=== PATIENT | male | born 1990 | race Asian ===

== ENCOUNTER 2021-07-15 17:10 | Emergency (ER) | payer MEDICAID ==
[~2021-07-15] VITALS: Ht 170.2 cm; Wt 100.0 kg
[2021-07-15] MEDS ORDERED: mag hydrox/Alum hydrox/simeth 30ml oral suspension PO ONE (17:45)
[2021-07-15] MEDS ORDERED: LIDOcaine Viscous 15ml cup MM ONE (17:45)
[2021-07-15 18:00] LABS: EOSINOPHILS # (AUTO) 0.1 X10'3 (0-0.9); MEAN PLATELET VOLUME 7.4 FL (7.4-10.4); MONOCYTES # (AUTO) 0.7 X10'3 (0-0.9); MONOCYTES % (AUTO) 7.4 % (2-12); RED CELL DISTRIBUTION WIDTH 12.7 % (11.5-14.5)
[2021-07-15 18:02] LABS: BASOPHILS % (AUTO) 0.3 % (0-1); HEMATOCRIT 44.5 % (42.0-52.0); HEMOGLOBIN 15.7 g/dl (14.0-17.9); LYMPHOCYTES # (AUTO) 1.2 X10'3 (1.1-4.8); MEAN CORPUSCULAR HEMOGLOBIN 30.5 PG (27.0-31.0); MEAN CORPUSCULAR HGB CONC 35.4 g/dL (33.0-36.5); MEAN CORPUSCULAR VOLUME 86.4 FL (78-98); NEUTROPHILS # (AUTO) 7.6 X10'3 (1.8-7.7); NEUTROPHILS % (AUTO) 79.3 % (42-75); PLATELET COUNT 274 X10'3 (140-440); RED BLOOD COUNT 5.15 X10'6 (4.70-6.10); WHITE BLOOD COUNT 9.6 X10'3 (4.5-11.0)
[2021-07-15 18:14] LABS: ALANINE AMINOTRANSFERASE 89 U/L (12-78); ALBUMIN 4.3 G/DL (3.4-5.0); ALBUMIN/GLOBULIN RATIO 1.1 (1.1-1.5); ALKALINE PHOSPHATASE 82 IU/L (46-116); ANION GAP 9 (8-16); ASPARTATE AMINO TRANSFERASE 48 U/L (10-37); BILIRUBIN,TOTAL 0.8 MG/DL (0.1-1.0); BLOOD UREA NITROGEN 16 MG/DL (7-18); BUN/CREATININE RATIO 14.4 (5.4-32.0); CALCIUM 9.8 MG/DL (8.5-10.1); CHLORIDE 102 MMOL/L (99-107); CREATININE 1.11 MG/DL (0.60-1.10); GLUCOSE 116 MG/DL (70-104); POTASSIUM 3.6 MMOL/L (3.5-5.1); SODIUM 140 MMOL/L (135-145); TOTAL CARBON DIOXIDE 28.8 MMOL/L (24-32); TOTAL PROTEIN 8.3 G/DL (6.4-8.2); eGFR 78 ML/MIN
[2021-07-15 18:16] LABS: LIPASE 1590 U/L (73-393)
[2021-07-15 18:38] LABS: CLARITY,URINE SLIGHTLY CLOUDY (Clear); COLOR,URINE YELLOW (Yellow); GLUCOSE, URINE NEGATIVE (Neg); KETONES,URINE NEGATIVE (Neg); LEUKOCYTE ESTERASE ,URINE NEGATIVE (Neg); NITRITES, URINE NEGATIVE (Neg); OCCULT BLOOD,URINE MODERATE (Neg); PH,URINE 5.5 (4.8-8.0); PROTEIN,URINE NEGATIVE (Neg); UROBILINOGEN,URINE 0.2 E.U/dL (0.2-1.0)
[2021-07-15] MEDS ORDERED: ondansetron/PF 4mg/2ml inj IV ONE (18:45)
[2021-07-15] MEDS ORDERED: normal saline 1000ml 1,000 ML IV SCH (18:45)
[2021-07-15] MEDS ORDERED: morphine 4 MG/ML inj SYRINge IV ONE (18:45)
[2021-07-15 18:47] LABS: UA COLLECTION TYPE CLN CATCH MIDSTREAM
[2021-07-15 18:50] LABS: BACTERIA,URINE FEW /HPF (Neg); MUCUS STRANDS FEW /LPF (Neg); SQUAMOUS EPITHELIAL CELL,UR FEW /LPF (FEW); WBC,URINE 0-4 /HPF (0-4)
[2021-07-15] MEDS ORDERED: ACET325T55 PO (19:22)
[2021-07-15] MEDS ORDERED: ONDA8TAB13 PO (19:22)
[2021-07-15] MEDS ORDERED: HYDR-3965 PO (19:23)
[2021-07-15 19:38] VITALS: BP 150/82
== END 2021-07-15 19:46 | disposition home or self-care (01) ==
LOC: ER 17:11
DX: K85.20 Alcohol induced acute pancreatitis without necrosis or infection (principal); R10.84 Generalized abdominal pain; Z72.89 Other problems related to lifestyle; Z79.899 Other long term (current) drug therapy
CPT/HCPCS: 36415; 76700; 80053; 81001; 83690; 85025; 96361; 96374; 96375; 99284; J2270; J2405; J7030

== ENCOUNTER 2021-07-16 13:03 | Emergency (ER) | payer MEDICAID ==
[~2021-07-16] VITALS: Ht 170.2 cm; Wt 105.8 kg
[~2021-07-16 13:03] MED LIST: ACET325T55 PO; HYDR-3965 PO; ONDA8TAB13 PO
[2021-07-16 13:18] VITALS: BP 171/110
[2021-07-16 15:06] LABS: BASOPHILS % (AUTO) 0.4 % (0-1); EOSINOPHILS # (AUTO) 0.1 X10'3 (0-0.9); EOSINOPHILS % (AUTO) 1.3 % (0-6); HEMATOCRIT 43.8 % (42.0-52.0); LYMPHOCYTES # (AUTO) 1.3 X10'3 (1.1-4.8); LYMPHOCYTES % (AUTO) 11.9 % (21-51); MEAN CORPUSCULAR HGB CONC 34.2 g/dL (33.0-36.5); MEAN CORPUSCULAR VOLUME 87.8 FL (78-98); MEAN PLATELET VOLUME 7.6 FL (7.4-10.4); MONOCYTES # (AUTO) 0.9 X10'3 (0-0.9); MONOCYTES % (AUTO) 8.4 % (2-12); NEUTROPHILS # (AUTO) 8.6 X10'3 (1.8-7.7); PLATELET COUNT 235 X10'3 (140-440); RED BLOOD COUNT 4.99 X10'6 (4.70-6.10); RED CELL DISTRIBUTION WIDTH 12.5 % (11.5-14.5); WHITE BLOOD COUNT 11.1 X10'3 (4.5-11.0)
[2021-07-16 15:20] LABS: ALANINE AMINOTRANSFERASE 79 U/L (12-78); ALBUMIN 3.9 G/DL (3.4-5.0); ALBUMIN/GLOBULIN RATIO 0.9 (1.1-1.5); ALKALINE PHOSPHATASE 76 IU/L (46-116); ANION GAP 9 (8-16); ASPARTATE AMINO TRANSFERASE 36 U/L (10-37); BILIRUBIN,TOTAL 1.2 MG/DL (0.1-1.0); BLOOD UREA NITROGEN 12 MG/DL (7-18); CHLORIDE 101 MMOL/L (99-107); GLUCOSE 106 MG/DL (70-104); LIPASE 499 U/L (73-393); POTASSIUM 3.7 MMOL/L (3.5-5.1); SODIUM 140 MMOL/L (135-145); TOTAL CARBON DIOXIDE 30.1 MMOL/L (24-32); TOTAL PROTEIN 8.4 G/DL (6.4-8.2); eGFR 88 ML/MIN
[2021-07-16 15:22] LABS: CALCIUM 9.7 MG/DL (8.5-10.1)
== END 2021-07-16 22:55 | disposition left against medical advice (07) ==
LOC: ER 13:03
DX: R10.9 Unspecified abdominal pain (principal); R11.10 Vomiting, unspecified; Z53.21 Procedure and treatment not carried out due to patient leaving prior to being seen by health care provider
CPT/HCPCS: 36415; 80053; 83690; 85025